=== PATIENT | female | born 1960 | race African-American/Black ===

== ENCOUNTER 2017-04-11 10:55 | Emergency (ER) | payer MEDICARE ==
[~2017-04-11] VITALS: Ht 162.6 cm; Wt 66.0 kg
[2017-04-11 11:26] VITALS: BP 162/97
== END 2017-04-11 18:21 | disposition left against medical advice (07) ==
LOC: ER 10:55
DX: R10.9 Unspecified abdominal pain (principal); Z53.21 Procedure and treatment not carried out due to patient leaving prior to being seen by health care provider

== ENCOUNTER 2018-03-30 11:05 | Emergency (ER) | payer MEDICARE ==
[~2018-03-30] VITALS: Ht 157.5 cm; Wt 75.0 kg
[2018-03-30 14:45] VITALS: BP 122/97
[2018-03-30] MEDS ORDERED: LIDOCAINE HCL/PF 1% 10 MG/ML 5ML VIAL IJ ONE (14:45)
[2018-03-30] MEDS ORDERED: BACITRACIN ZINC OINT UDPKT TOP ONE (14:45)
[2018-03-30] MEDS ORDERED: TETANUS, DIPHTHERIA, PERTUSSIS VAC/PF 0.5ML (>7YR OLD) IM ONE (14:45)
[2018-03-30] MEDS ORDERED: IBUPROFEN 600MG TABLET PO ONE (14:45)
== END 2018-03-30 17:49 | disposition home or self-care (01) ==
LOC: ER 11:05
DX: S61.412A Laceration without foreign body of left hand, initial encounter (principal); F12.10 Cannabis abuse, uncomplicated; Z98.890 Other specified postprocedural states; W01.0XXA Fall on same level from slipping, tripping and stumbling without subsequent striking against object, initial encounter; Y93.89 Activity, other specified; Y92.89 Other specified places as the place of occurrence of the external cause; Y99.8 Other external cause status
CPT/HCPCS: 73130; 90471; 90715; 99284; J3490; Z7610

== ENCOUNTER 2023-01-31 01:56 | Emergency (ER) | payer MEDICARE, OTHER ==
[~2023-01-31] VITALS: Ht 172.7 cm; Wt 90.0 kg
[2023-01-31 01:59] VITALS: BP 140/82; PULSE 90; RESP 18; TEMP 98.5; O2SAT 100
[2023-01-31] MEDS ORDERED: ONDANSETRON HCL 4MG/2ML INJ IV STA (02:35)
[2023-01-31] MEDS ORDERED: KETOROLAC 30MG/ML VIAL IV STA (02:35)
[2023-01-31] MEDS ORDERED: SODIUM CHLORIDE 0.9% 1,000 ML IV ONE (02:45)
[2023-01-31 03:52] LABS: BASOPHILS % 0.6 % (0.0-2.0); DIFFERENTIAL COMMENT 0; EOSINOPHILS % 1.3 % (0.0-5.0); HEMATOCRIT. 48.7 % (36.0-48.0); HEMOGLOBIN. 16.6 g/dL (12.0-16.0); LYMPHOCYTES % 33.1 % (20.0-50.0); MEAN CORPUSCULAR HEMOGLOBIN 35.9 pg (28.0-32.0); MEAN CORPUSCULAR HGB CONC 34.1 g/dL (31.0-37.0); MEAN CORPUSCULAR VOLUME 105.3 fL (81.0-99.0); MEAN PLATELET VOLUME 8.4 fl (7.4-10.4); MONOCYTES % 7.7 % (2.0-8.0); NEUTROPHILS % 57.3 % (40.0-76.0); PLATELET 224 x1000/uL (130-400); RED BLOOD CELL COUNT 4.62 mill/uL (4.2-5.4); RED CELL DISTRIBUTION WIDTH 18.8 % (11.6-14.6); WHITE BLOOD COUNT 7.4 x1000/uL (4.5-11.0)
[2023-01-31 04:08] LABS: ALANINE AMINOTRANSFERASE 63 IU/L (10-49); ALBUMIN 4.8 g/dL (3.2-4.8); ASPARTATE AMINOTRANSFERASE 61 IU/L (<34); BILIRUBIN TOTAL 0.5 mg/dL (0.1-1.0); CALCIUM 10.2 mg/dL (8.7-10.4); CARBON DIOXIDE 25 mEq/L (21-32); CHLORIDE 100 mEq/L (98-107); CREATININE 1.5 mg/dL (0.6-1.0); GLUCOSE 154 mg/dL (70-105); PROTEIN TOTAL 7.7 g/dL (6.0-8.3); SODIUM 138 mEq/L (136-145); UREA NITROGEN BLOOD 22 mg/dL (9-23)
[2023-01-31] MEDS ORDERED: IBUP-2029 MT (05:33)
[2023-01-31] MEDS ORDERED: CIPR-263 MT (05:33)
[2023-01-31] MEDS ORDERED: METR-167 MT (05:33)
== END 2023-01-31 05:53 | disposition home or self-care (01) ==
LOC: ER 01:56
DX: K80.20 Calculus of gallbladder without cholecystitis without obstruction (principal); E87.6 Hypokalemia; N17.9 Acute kidney failure, unspecified; F12.10 Cannabis abuse, uncomplicated; E11.9 Type 2 diabetes mellitus without complications; I10 Essential (primary) hypertension; Z88.0 Allergy status to penicillin
CPT/HCPCS: 99284; 74176; 80053; 83690; 85025; 36415; J7030

== ENCOUNTER 2025-01-27 08:23 | Emergency (ER) | payer OTHER ==
[~2025-01-27] VITALS: Ht 157.5 cm; Wt 82.0 kg
[~2025-01-27 08:23] MED LIST: ATOR20TA PO; CHOL100053 PO; GLIP10TA17 PO; PANT40SU PO
[2025-01-27 08:49] VITALS: O2SAT 99
[2025-01-27 09:16] LABS: BASOPHILS % 0.4 % (0.0-2.0); EOSINOPHILS % 0.4 % (0.0-5.0); HEMATOCRIT. 43.0 % (36.0-48.0); HEMOGLOBIN. 14.2 g/dL (12.0-16.0); LYMPHOCYTES % 25.4 % (20.0-50.0); MEAN PLATELET VOLUME 7.6 fl (7.4-10.4); MONOCYTES % 7.7 % (2.0-8.0); NEUTROPHILS % 66.1 % (40.0-76.0); PLATELET 232 x1000/uL (130-400); RED BLOOD CELL COUNT 4.37 mill/uL (4.2-5.4); RED CELL DISTRIBUTION WIDTH 14.2 % (11.6-14.6)
[2025-01-27] MEDS ORDERED: FAMOTIDINE 20MG/2ML VIAL IV ONE (09:30)
[2025-01-27] MEDS ORDERED: MORPHINE SULFATE 4 MG/ML INJ (FOR IV/IM USE) IV ONE (09:30)
[2025-01-27] MEDS ORDERED: ONDANSETRON HCL 4MG/2ML INJ IV ONE (09:30)
[2025-01-27 09:35] LABS: CREATININE 1.1 mg/dL (0.6-1.0)
[2025-01-27 09:36] LABS: UREA NITROGEN BLOOD 9 mg/dL (9-23)
[2025-01-27 09:38] LABS: ASPARTATE AMINOTRANSFERASE 38 IU/L (<34); BILIRUBIN TOTAL 0.8 mg/dL (0.1-1.0); PROTEIN TOTAL 6.8 g/dL (6.0-8.3)
[2025-01-27] MEDS ORDERED: LOPERAMIDE HCL 2MG CAPSULE PO ONE (09:45)
[2025-01-27] MEDS: POTASSIUM CHLORIDE 20MEQ TABLET SR PO NR (10:04)
[2025-01-27] MEDS: SODIUM CHLORIDE 0.9% 1,000 ML IV ONE (10:04)
[2025-01-27] MEDS: FAMOTIDINE 20MG/2ML VIAL IV NR (10:05)
[2025-01-27] MEDS: MORPHINE SULFATE 4 MG/ML INJ (FOR IV/IM USE) IV NR (10:05)
[2025-01-27] MEDS: LOPERAMIDE HCL 2MG CAPSULE PO NR (10:05)
[2025-01-27] MEDS: ONDANSETRON HCL 4MG/2ML INJ IV NR (10:05)
[2025-01-27 10:14] LABS: TROPONIN I HIGH SENSITIVITY 8 ng/L (3.0-34)
[2025-01-27 10:16] LABS: INR 1.0
[2025-01-27 10:19] LABS: ASPARTATE AMINOTRANSFERASE 40 IU/L (<34); BILIRUBIN DIRECT 0.2 mg/dL (<=3.0); BILIRUBIN TOTAL 0.8 mg/dL (0.1-1.0); PROTEIN TOTAL 6.7 g/dL (6.0-8.3)
[2025-01-27] MEDS ORDERED: METR-167 MT (11:55)
[2025-01-27] MEDS ORDERED: IMOD MT (11:57)
[2025-01-27 12:06] VITALS: BP 135/88; PULSE 95; RESP 17; TEMP 36.8; O2SAT 99
== END 2025-01-27 12:07 | disposition home or self-care (01) ==
LOC: ER 08:23
DX: R10.9 Unspecified abdominal pain (principal); R19.7 Diarrhea, unspecified; R07.9 Chest pain, unspecified; R11.10 Vomiting, unspecified; E11.9 Type 2 diabetes mellitus without complications; R00.2 Palpitations; F41.9 Anxiety disorder, unspecified; Z79.899 Other long term (current) drug therapy; Z79.84 Long term (current) use of oral hypoglycemic drugs; Z79.01 Long term (current) use of anticoagulants; Z88.0 Allergy status to penicillin; Z90.49 Acquired absence of other specified parts of digestive tract; Z88.2 Allergy status to sulfonamides
CPT/HCPCS: 80076; 80053; 80320; 83690; 85025; 85610; 84484; 36415; 74176; 93005; 96361; 96374; 96375; 99285; J1308; J2405; J2270; J7030; G0480